=== PATIENT | female | born 1955 | race Two or more races ===

== ENCOUNTER → 2024-04-12 | Outpatient (CLI) | payer OTHER, MEDICAID, SELFPAY ==
[2024-04-12 10:00] LABS: Glucose Estimated Average 180 mg/dL (80-131); Hemoglobin A1C 7.9 % Hgb (4.8-6.0)
[2024-04-12 10:15] LABS: Alanine Aminotransferase 19 U/L (10-49); Albumin, Serum 4.6 gm/dL (3.4-4.8); Albumin/Globulin Ratio 1.9 (1.2-2.2); Alkaline Phosphatase 87 U/L (46-116); Anion Gap 6 (7-16); Aspartate Amino Transferase 19 U/L (0-34); BUN/Creatinine Ratio 19 Ratio (12-20); Bilirubin,Total 0.8 mg/dL (0.3-1.2); Blood Urea Nitrogen 15 mg/dL (9-23); Calcium 9.6 mg/dL (8.3-10.6); Calcium (Corrected) 9.6 mg/dL (8.5-10.1); Carbon Dioxide 28.6 mMol/L (20.0-31.0); Cardiac Risk Estimate 2.6 RATIO (3.7-5.6); Chloride 107 mMol/L (98-107); Cholesterol 142 mg/dL (132-200); Creatinine (Component) 0.8 mg/dL (0.6-1.3); Globulin 2.4 gm/dL (2.3-3.5); Glucose 77 mg/dL (74-106); HDL Cholesterol 55 mg/dL (40-60); LDL Cholesterol,Calculated 63 mg/dL (0-130); Osmolality,Calculated 282 (275-295); Sodium 142 mMol/L (136-145); Triglycerides 120 mg/dL (30-150); eGFR > 60 See Note
== END | disposition home or self-care (01) ==
LOC: COPL 08:51
PROVIDERS: PCP Student in an Organized Health Care Education/Training Program; Referring Provider Student in an Organized Health Care Education/Training Program; Visit Provider Student in an Organized Health Care Education/Training Program
DX: I10 Essential (primary) hypertension (principal); E78.00 Pure hypercholesterolemia, unspecified; E11.65 Type 2 diabetes mellitus with hyperglycemia
CPT/HCPCS: 36415; 80053; 80061; 83036

== ENCOUNTER → 2024-07-26 | Outpatient (CLI) | payer MEDICARE, MEDICAID, SELFPAY ==
[2024-07-26 10:19] LABS: Misc Send Out* See Sep Rpt
[2024-07-26 11:30] LABS: Basophils % (Auto) 0 % (0-2.5); Eosinophils # (Auto) 0.1 Thou/mm3 (0.0-0.5); Eosinophils % (Auto) 2 % (0-10); Hematocrit 44.6 % (36.0-46.0); Hemoglobin 14.7 g/dL (12.0-16.0); Immature Granulocytes % (Auto) 0 % (0-0); Immature Granulocytes Auto 0.01 Thou/mm3 (0.00-0.00); Lymphocytes # (Auto) 2.8 Thou/mm3 (1.0-4.8); Lymphocytes % (Auto) 39 % (10-50); Mean Corpuscular Hemoglobin 30.1 pg (25.0-35.0); Mean Corpuscular Volume 91 fL (80-100); Monocytes # (Auto) 0.4 Thou/mm3 (0.0-0.8); Monocytes % (Auto) 6 % (0-12); Neutrophils # (Auto) 3.8 Thou/mm3 (1.8-7.7); Neutrophils % (Auto) 54 % (37-80); Nucleated Red Blood Cell % 0 /100 WBC (0); Platelet Count 230 Thou/mm3 (140-440); Red Blood Count 4.89 Miln/mm3 (4.00-5.20); White Blood Count 7.2 Thou/mm3 (3.6-11.0)
[2024-07-26 11:35] LABS: Glucose Estimated Average 166 mg/dL (80-131); Hemoglobin A1C 7.4 % Hgb (4.8-6.0)
[2024-07-26 11:45] LABS: Folate 12.05 ng/mL (>5.38); Vitamin B12 555 pg/mL (211-911)
[2024-07-26 11:49] LABS: Alanine Aminotransferase 20 U/L (10-49); Albumin, Serum 4.5 gm/dL (3.4-4.8); Albumin/Globulin Ratio 1.6 (1.2-2.2); Alkaline Phosphatase 82 U/L (46-116); Anion Gap 11 (7-16); Aspartate Amino Transferase 18 U/L (0-34); BUN/Creatinine Ratio 24 Ratio (12-20); Bilirubin,Total 0.8 mg/dL (0.3-1.2); Blood Urea Nitrogen 19 mg/dL (9-23); Calcium 9.1 mg/dL (8.3-10.6); Calcium (Corrected) 9.1 mg/dL (8.5-10.1); Carbon Dioxide 26.5 mMol/L (20.0-31.0); Cardiac Risk Estimate 2.6 RATIO (3.7-5.6); Chloride 106 mMol/L (98-107); Cholesterol 137 mg/dL (132-200); Creatinine (Component) 0.8 mg/dL (0.6-1.3); Globulin 2.8 gm/dL (2.3-3.5); Glucose 126 mg/dL (74-106); HDL Cholesterol 52 mg/dL (40-60); LDL Cholesterol,Calculated 57 mg/dL (0-130); Magnesium 1.9 mg/dL (1.6-2.6); Osmolality,Calculated 289 (275-295); Potassium 4.2 mMol/L (3.4-5.1); Sodium 143 mMol/L (136-145); Thyroid Stimulating Hormone 2.09 uIU/mL (0.55-4.78); Total Protein 7.3 gm/dL (5.7-8.2); Triglycerides 138 mg/dL (30-150); eGFR > 60 See Note
[2024-07-26 11:50] LABS: Creatinine MALB Rnd Ur 80 mg/dL (30-125); Microalbumin Creat Ratio 11 mg/gCrea (<30); Microalbumin, Random Urine 9 mg/L (0-300)
== END | disposition home or self-care (01) ==
LOC: COPL 09:56
PROVIDERS: PCP Student in an Organized Health Care Education/Training Program; Referring Provider Student in an Organized Health Care Education/Training Program; Visit Provider Student in an Organized Health Care Education/Training Program
DX: G62.9 Polyneuropathy, unspecified (principal); I10 Essential (primary) hypertension; E78.00 Pure hypercholesterolemia, unspecified; E11.9 Type 2 diabetes mellitus without complications
CPT/HCPCS: 36415; 80053; 80061; 82043; 82570; 82607; 82746; 83036; 83735; 84443; 85025

== ENCOUNTER → 2024-08-22 | Outpatient (CLI) | payer MEDICARE, MEDICAID, SELFPAY | END | disposition home or self-care (01) | LOC: SLDO 15:25 | PROVIDERS: PCP Student in an Organized Health Care Education/Training Program; Referring Provider Student in an Organized Health Care Education/Training Program; Visit Provider Student in an Organized Health Care Education/Training Program | DX: N39.0 Urinary tract infection, site not specified (principal) | CPT/HCPCS: 87086 ==

== ENCOUNTER → 2024-09-03 | Outpatient (CLI) | payer MEDICARE, MEDICAID, SELFPAY ==
--- NOTE | 2024-09-03 16:00 | XR_ITS ---
Examination: Retroperitoneal ultrasound, complete Technique: Multiple high resolution grayscale images of the retroperitoneum obtained, including kidneys and bladder. Exam date and time:September 03, 2024 1601 hours INDICATIONS: Bilateral flank pain beginning one month ago FINDINGS: Right kidney 9.7 cm renal cortex 1.1 cm Mild hydronephrosis Left kidney 9.6 cm renal cortex 1.4 cm Mild hydronephrosis Mild bilateral renal parenchymal scar formation No bladder mass or bladder calculi Bladder prevoid volume 86 cc unable to void IMPRESSION: Mild bilateral hydronephrosis, clinical correlation is advised, consider CT scan abdomen and pelvis without contrast follow-up to assess etiology of the hydronephrosis
== END | disposition home or self-care (01) ==
LOC: CDIM 15:35
PROVIDERS: PCP Student in an Organized Health Care Education/Training Program; Referring Provider Student in an Organized Health Care Education/Training Program; Visit Provider Student in an Organized Health Care Education/Training Program
DX: N13.30 Unspecified hydronephrosis (principal)
CPT/HCPCS: 76770

== ENCOUNTER → 2024-11-08 | Outpatient (CLI) | payer MEDICARE, MEDICAID, SELFPAY ==
--- NOTE | 2024-11-08 08:00 | XR_ITS ---
Examination: CT abdomen and pelvis without contrast. Coronal 3-D reconstructions. Sagittal 2-D reconstructions. Date and time of exam:November 08, 2024 0800 hours INDICATIONS: Left flank and left upper abdominal pain beginning one week ago, renal sonogram August 26, 2024 mild bilateral hydronephrosis CTDI: vol (mGy): 8.68 DLP: (mGycm): 468 Technique: Axial images of the abdomen have been obtained, 3 mm slice thickness Intravenous contrast material has not been administered. Low dose protocols were performed. One or more of the following dose reduction techniques were used; automated exposure control, adjustment of the mA and/or KV according to patient size, use of iterative reconstruction technique. Findings: No focal liver or splenic lesions Cholelithiasis No pancreatic mass Small parapelvic cysts on the left No renal or ureteral calculi No hydronephrosis No bowel obstruction No pericecal inflammatory change Atrophic uterus No bladder mass or bladder calculi IMPRESSION: No renal or ureteral calculi, no hydronephrosis No bladder mass or bladder calculi
== END | disposition home or self-care (01) ==
LOC: CCTX 07:42
PROVIDERS: Referring Provider Student in an Organized Health Care Education/Training Program; Visit Provider Student in an Organized Health Care Education/Training Program
DX: N13.39 Other hydronephrosis (principal)
CPT/HCPCS: 74176

== ENCOUNTER → 2025-01-10 | Outpatient (CLI) | payer MEDICARE, MEDICAID, SELFPAY ==
[2025-01-10 10:54] LABS: Basophils # (Auto) 0.0 Thou/mm3 (0.0-0.2); Basophils % (Auto) 1 % (0-2.5); Eosinophils # (Auto) 0.1 Thou/mm3 (0.0-0.5); Eosinophils % (Auto) 2 % (0-10); Hematocrit 43.9 % (36.0-46.0); Hemoglobin 14.2 g/dL (12.0-16.0); Immature Granulocytes Auto 0.01 Thou/mm3 (0.00-0.00); Lymphocytes # (Auto) 3.2 Thou/mm3 (1.0-4.8); Lymphocytes % (Auto) 39 % (10-50); Mean Corpuscular HGB Conc 32.3 g/dl (31.0-37.0); Mean Corpuscular Hemoglobin 29.5 pg (25.0-35.0); Mean Corpuscular Volume 91 fL (80-100); Monocytes # (Auto) 0.5 Thou/mm3 (0.0-0.8); Monocytes % (Auto) 6 % (0-12); Neutrophils # (Auto) 4.3 Thou/mm3 (1.8-7.7); Neutrophils % (Auto) 52 % (37-80); Nucleated Red Blood Cell # 0.00 Thou/mm3 (0.00-0.00); Nucleated Red Blood Cell % 0 /100 WBC (0); Platelet Count 213 Thou/mm3 (140-440); RDW Standard Deviation 46.0 fL (36.4-46.3); Red Blood Count 4.82 Miln/mm3 (4.00-5.20); White Blood Count 8.2 Thou/mm3 (3.6-11.0)
[2025-01-10 11:01] LABS: Glucose Estimated Average 212 mg/dL (80-131); Hemoglobin A1C 9.0 % Hgb (4.8-6.0)
[2025-01-10 11:13] LABS: Alanine Aminotransferase 19 U/L (10-49); Albumin, Serum 4.4 gm/dL (3.4-4.8); Albumin/Globulin Ratio 2.0 (1.2-2.2); Alkaline Phosphatase 89 U/L (46-116); Anion Gap 11 (7-16); Aspartate Amino Transferase 21 U/L (0-34); BUN/Creatinine Ratio 25 Ratio (12-20); Bilirubin,Total 0.9 mg/dL (0.3-1.2); Blood Urea Nitrogen 20 mg/dL (9-23); Calcium 9.8 mg/dL (8.3-10.6); Calcium (Corrected) 9.8 mg/dL (8.5-10.1); Carbon Dioxide 26.7 mMol/L (20.0-31.0); Cardiac Risk Estimate 2.5 RATIO (3.7-5.6); Chloride 108 mMol/L (98-107); Cholesterol 143 mg/dL (132-200); Creatinine (Component) 0.8 mg/dL (0.6-1.3); Globulin 2.2 gm/dL (2.3-3.5); Glucose 83 mg/dL (74-106); HDL Cholesterol 57 mg/dL (40-60); LDL Cholesterol,Calculated 61 mg/dL (0-130); Osmolality,Calculated 292 (275-295); Potassium 4.6 mMol/L (3.4-5.1); Sodium 146 mMol/L (136-145); Thyroid Stimulating Hormone 2.45 uIU/mL (0.55-4.78); Total Protein 6.6 gm/dL (5.7-8.2); Triglycerides 127 mg/dL (30-150); eGFR > 60 See Note
== END | disposition home or self-care (01) ==
LOC: COPL 08:53
PROVIDERS: PCP Student in an Organized Health Care Education/Training Program; Referring Provider Student in an Organized Health Care Education/Training Program; Visit Provider Student in an Organized Health Care Education/Training Program
DX: I10 Essential (primary) hypertension (principal); G62.9 Polyneuropathy, unspecified; E11.9 Type 2 diabetes mellitus without complications; E78.00 Pure hypercholesterolemia, unspecified
CPT/HCPCS: 36415; 80053; 80061; 83036; 84443; 85025

== ENCOUNTER → 2025-01-23 | Outpatient (CLI) | payer MEDICARE, MEDICAID, SELFPAY ==
--- NOTE | 2025-01-23 11:45 | XR_ITS ---
Examination: Screening digital mammography, bilateral Computer aided detection 3-D breast Tomosynthesis, bilateral Date and time of exam: January 23, 2025 1113 hours, compared to mammograms dating to September 11, 2020 Indication: Screening Technique: Nonmagnified MLO, CC views of the breasts to been obtained, reconstructed from 3-D Tomosynthesis images. R2 computer aided detection program utilized for evaluation of suspicious masses and/or abnormal calcifications. 3-D Tomosynthesis images obtained. Findings: Scattered areas of fibroglandular density. Benign calcifications. No interval suspicious masses Impression: BI-RADS category II: Benign Findings. Recommend 1 year follow-up mammogram.
== END | disposition home or self-care (01) ==
LOC: CDIM 11:22
PROVIDERS: Referring Provider Student in an Organized Health Care Education/Training Program; Visit Provider Student in an Organized Health Care Education/Training Program
DX: Z12.31 Encounter for screening mammogram for malignant neoplasm of breast (principal); R92.323 Mammographic fibroglandular density, bilateral breasts; R92.1 Mammographic calcification found on diagnostic imaging of breast
CPT/HCPCS: 77063; 77067

== ENCOUNTER 2025-02-24 15:21 | Emergency (ER) | payer MEDICARE, MEDICAID, SELFPAY ==
[2025-02-24 16:21] VITALS: BP 152/89; PULSE 74; RESP 18; TEMP 37.2; O2SAT 97
--- NOTE | 2025-02-24 16:23 | XR_ITS ---
Examination: CT abdomen with intravenous contrast CT pelvis with intravenous contrast 2-D coronal reconstructions 2-D sagittal reconstructions Date and time of exam: February 24, 2025, 5:41 p.m, comparison November 08, 2024 INDICATIONS: Right-sided flank and abdominal pain with nausea vomiting today. CTDI: vol (mGy) 9.83 DLP: (mGycm) 546 Technique: Multiple axial sections of the abdomen and pelvis have been obtained. 64 slice high-resolution scanner used. 3 mm axial sections have been obtained, post intravenous injection of 60 cc Isovue 370 2-D sagittal, coronal reconstructions obtained. Low dose protocols were performed. One or more of the following dose reduction techniques were used; automated exposure control, adjustment of the mA and/or KV according to patient size, use of iterative reconstruction technique. Findings: No focal liver or splenic lesions Gallstones No pancreatic mass Minimal left mild right hydronephrosis, wall thickening of the right pelvicalyceal system and right ureter No bowel obstruction, no pericecal inflammatory change There appears to be inflammatory change in the right adnexal region, axial image 200 with trace free fluid in the pelvis Atrophic uterus Urinary bladder wall thickening up to 6 mm Severe osteopenia with fusion L4-S1 Right internal iliac region axial image 184 appears prominent early adenopathy cannot be excluded IMPRESSION: Minimal left mild right hydronephrosis, suspicious for right urinary tract infection Inflammatory change in the right adnexal region, recommend pelvic sonography follow-up Suspicious for right internal iliac lymphadenopathy, consider PET CT scan follow-up
--- NOTE | 2025-02-24 16:27 | PD.EDABDPN ---
ED Abdominal Pain RME/HPI General Chief Complaint: Abdominal Pain Stated complaint: RIGHT SIDED ABD PAIN SINCE 1300 Time seen by provider: 02/24/25 15:42 Arrival date/time: 02/24/25 15:21 RME / HPI RME / HPI narrative: DR. LAWRENCE MAIN ED EVALUATION: 69-year-old female with a history of prior kidney infections presents to the Emergency Department accompanied by her for evaluation of right flank pain that began around 1:30 PM today. The pain is constant and associated with nausea and vomiting. She reports mild dysuria but denies hematuria. No fever or chills. No diarrhea or constipation. No recent trauma, travel, or sick contacts reported. Related Data Home Medications ?Medication ?Instructions ?Recorded ?Confirmed amlodipine 2.5 mg tablet 1 tab PO BID 11/08/21 06/21/22 aspirin 81 mg chewable tablet 81 mg PO QDAY 11/08/21 06/21/22 empagliflozin 25 mg tablet 25 mg PO QDAY 11/08/21 06/21/22 (Jardiance) ramipril 10 mg capsule 10 mg PO QDAY 11/08/21 06/21/22 semaglutide 14 mg tablet (Rybelsus) 14 mg PO QDAY 11/08/21 06/21/22 B-complex with vitamin C 1 cap PO QDAY 03/03/22 06/21/22 garlic 1,000 mg capsule 1,000 mg PO QDAY 03/03/22 06/21/22 multivitamin (Multiple Vitamins 1 tab PO QAM 03/03/22 06/21/22 tablet) pantoprazole 40 mg tablet,delayed 40 mg PO DAILY 03/03/22 06/21/22 release ibuprofen 200 mg tablet 200 mg PO Q6H PRN Pain 03/17/22 06/21/22 Held on 06/21/22. Instructions: Resume on 06/22/22. MAY RESUME AFTER 24 HOURS Previous Rx's ?Medication ?Instructions ?Recorded cefixime 400 mg capsule (Suprax) 400 mg PO QDAY 10 days #10 caps 02/24/25 Allergies Allergy/AdvReac Type Severity Reaction Status Date / Time No Known Allergies Allergy Verified 02/24/25 15:23 Review of Systems Review of Systems Systems Reviewed: All systems reviewed, normal except as documented Past Medical History Past Medical History NEUROLOGIC: Positive Neurological Disorders and Migraine CARDIAC: Positive Cardiac Disorders, Hypercholesterolemia, Edema (SWOLLEN FEET) and Hypertension GASTROINTESTINAL: Positive Gastrointestinal Disorders and Hemorrhoids GENITOURINARY: Positive Genitourinary Disorders and Kidney Stones REPRODUCTIVE: Positive Previous Pregnancies (X4) MUSCULOSKELETAL: Positive Musculoskeletal Disorders and Arthritis ENT: Positive Cataracts (LEFT) ENDOCRINE: Positive Endocrine Disorders and Diabetes Mellitus Type 2 PSYCHO/SOCIAL: Positive Depression OTHER HISTORY: Positive Hospitalization (HOSP FOR 10/28 BG OUT OF CONTROL), Chicken Pox, Measles and Mumps Family History FAMILY HISTORY: Positive Family Cardiac Disorders (FATHER (CVA),MOTHER ([place]),BROTHER,SISTER (HTN)) and Family Cancer (BROTHER (LUNG CA), BROTHER KIDNEY CANCER) Surgical History SURGICAL: Positive Tubal Ligation Social History SMOKING STATUS: Never smoker SUBSTANCE USE: does not use ALCOHOL: Never ED Exam Narrative Physical exam: GENERAL APPEARANCE: alert and oriented x 4, well-developed, well-nourished, no acute distress VITALS: All vitals were reviewed and the pulse ox is 97% on room air, which is normal according to my interpretation. HEENT: Normocephalic, atraumatic; pupils equal, round, reactive to light; EOMI; mucous membranes pink, moist; oropharynx clear NECK: Supple LUNGS: CTABL; no wheezes, no rales, no rhonchi HEART: Regular rate, regular rhythm; normal S1, S2; no murmurs ABDOMEN: non distended; normal BS; soft, no tenderness, no guarding, no rebound; no masses, no organomegaly, no hernia BACK: Right CVA tenderness EXTREMITIES: atraumatic; no edema NEUROLOGIC: awake; alert and oriented x4; cranial nerves II-XII grossly intact; no focal sensory or motor deficits PSYCHIATRIC: appropriate mood and affect SKIN: warm, dry, normal color; no rashes Course Quality Measures none Orders Category Date Time Status CT Screening NOW Care 02/24/25 16:[address] abdomen pelvis w con Stat Exams 02/24/25 16:23 Completed B-Type Natriuretic Peptide Stat Lab 02/24/25 16:49 Completed CBC Stat Lab 02/24/25 16:49 Completed Comprehensive Metabolic Panel Stat Lab 02/24/25 16:49 Completed Lipase Stat Lab 02/24/25 16:49 Completed Magnesium Stat Lab 02/24/25 16:49 Completed Troponin I Stat Lab 02/24/25 16:49 Completed UA, C/S IF [Urinalysis, C/S if Indicated] Stat Lab 02/24/25 16:50 Completed Urine Culture Stat Lab 02/24/25 16:50 Completed HYDROcodone*/APAP 5/325 [[place] 5/325] Med 02/24/25 16:22 Discontinued 1 tab PO X1 ONE Ketorolac Inj [Toradol Inj] Med 02/24/25 16:21 Discontinued 30 mg IM X1 ONE Ondansetron Odt [Zofran Odt] Med 02/24/25 16:21 Discontinued 4 mg PO X1 ONE cefTRIAXone/D5w 1gm IV premix [Rocephin/D5w 1gm IV Med 02/24/25 17:38 Discontinued premix] 1 gm in 50 ml IV X1 Vital Signs Vital signs: Vital Signs Temperature 99.0 F 02/24/25 16:21 Pulse Rate 74 02/24/25 16:21 Respiratory Rate 18 02/24/25 16:21 Blood Pressure 152/89 H 02/24/25 16:21 Pulse Oximetry (%) 97 02/24/25 16:21 Oxygen Delivery Method Room Air 02/24/25 16:21 Abdominal Pain MDM MDM Narrative MDM Narrative:: ILashell am scribing for and in the presence of Dr. Lawrence. Patient data External records reviewed:: [facility] previous records Clinical information provided by:: patient Social determinants that could affect healthcare access:: none Patient has the following chronic illnesses:: prior kidney infections How is presenting disease/condition affected by chronic disease/condition?: exacerbated by Evaluation data The following diagnostics were reviewed and interpreted by me:: lab results and radiology exam(s) Lab and/or radiology exams considered but not ordered:: none Interpretation Summary: Pending. Medications / Prescriptions Medications or Prescriptions considered but not ordered:: none Medication administrations:: Medication Administration History Discontinued Medications Hydrocodone Bitart/Acetaminophen (Hydrocodone/Apap 5/325 Tablet) 1 tab PO X1 ONE Stop: 02/24/25 16:23 Last Admin: 02/24/25 16:30 Dose: 1 tab Documented By: [facility] Ceftriaxone Sodium/Dextrose (Rocephin/D5w 1gm Iv Premix) 1 gm in 50 mls @ 100 mls/hr IV X1 ONE Stop: 02/24/25 18:07 Last Infusion: 02/24/25 20:08 Dose: Infused Documented By: Admin: 02/24/25 19:22 Dose: 100 mls/hr Documented By: BD Ketorolac Tromethamine (Ketorolac Inj 30 Mg/Ml Vial) 30 mg IM X1 ONE Stop: 02/24/25 16:22 Last Admin: 02/24/25 16:30 Dose: 30 mg Documented By: ANIA Ondansetron HCl (Ondansetron Odt 4 Mg Tabrap) 4 mg PO X1 ONE; Protocol Stop: 02/24/25 16:22 Last Admin: 02/24/25 16:29 Dose: 4 mg Documented By: ANIA see above Consultations Consultation(s) initiated? (list below): No Diagnosis Differential diagnosis abdominal pain: other (Pyelonephritis, nephrolithiasis, and UTI.) Most likely diagnosis given after review of the tests above:: No official diagnoses at this time, still pending diagnostic tests. Patient signout to the night time babysitter provider. Admission Indicated Admission indicated?: not indicated Explain why admission is indicated or not indicated:: No final disposition plan at this time, still pending diagnostic tests. Patient signout to the night time babysitter provider. Admission Request Was there a request for admission?: No Disposition Plan Disposition Plan: other (specify) (Patient signout to the night time babysitter provider.) Discharge Plan Prescriptions/Referrals Prescriptions/Med Rec: New cefixime [Suprax] 400 mg capsule 400 mg PO QDAY 10 Days Qty: 10 0RF No Action amlodipine 2.5 mg tablet 1 tab PO BID aspirin 81 mg Tablet,Chewable 81 mg PO QDAY ramipril 10 mg Capsule 10 mg PO QDAY Jardiance 25 mg Tablet 25 mg PO QDAY Rybelsus 14 mg Tablet 14 mg PO QDAY ibuprofen 200 mg Tablet 200 mg PO Q6H PRN (Reason: Pain) multivitamin [Multiple Vitamins] Tablet 1 tab PO QAM garlic 1,000 mg Capsule 1,000 mg PO QDAY pantoprazole 40 mg tablet,delayed release (DR/EC) 40 mg PO DAILY Patient Comments: TAKE 1 TABLET BY MOUTH EVERY DAY B-complex with vitamin C Capsule 1 cap PO QDAY Referrals: Tanmay Paulino PA-C [Primary Care Provider] - In 1 week Problem List Clinical Impression: Flank pain Patient/Caregiver Discharge Instructions Print Language: Vietnamese
[2025-02-24] MEDS: ONDANSETRON ODT 4 MG TABRAP PO (16:29)
[2025-02-24] MEDS: HYDROcodone/APAP 5/325 TABLET 1 TAB PO (16:30)
[2025-02-24] MEDS: KETOROLAC INJ 30 MG/ML VIAL IM (16:30)
[2025-02-24 17:05] LABS: Collection Type, Urine Clean Catch
[2025-02-24 17:10] LABS: Basophils # (Auto) 0.0 Thou/mm3 (0.0-0.2); Basophils % (Auto) 0 % (0-2.5); Eosinophils # (Auto) 0.0 Thou/mm3 (0.0-0.5); Eosinophils % (Auto) 0 % (0-10); Hematocrit 45.1 % (36.0-46.0); Hemoglobin 14.8 g/dL (12.0-16.0); Immature Granulocytes Auto 0.03 Thou/mm3 (0.00-0.00); Lymphocytes # (Auto) 1.7 Thou/mm3 (1.0-4.8); Lymphocytes % (Auto) 13 % (10-50); Mean Corpuscular HGB Conc 32.8 g/dl (31.0-37.0); Mean Corpuscular Hemoglobin 29.4 pg (25.0-35.0); Mean Corpuscular Volume 90 fL (80-100); Monocytes # (Auto) 0.8 Thou/mm3 (0.0-0.8); Monocytes % (Auto) 6 % (0-12); Neutrophils # (Auto) 10.8 Thou/mm3 (1.8-7.7); Neutrophils % (Auto) 81 % (37-80); Nucleated Red Blood Cell # 0.00 Thou/mm3 (0.00-0.00); Nucleated Red Blood Cell % 0 /100 WBC (0); Platelet Count 215 Thou/mm3 (140-440); RDW Standard Deviation 44.1 fL (36.4-46.3); Red Blood Count 5.03 Miln/mm3 (4.00-5.20); White Blood Count 13.4 Thou/mm3 (3.6-11.0)
[2025-02-24 17:27] LABS: Bacteria,Urine 4+; Bilirubin,Urine Negative (Negative); Blood,Urine Trace (Negative); Clarity,Urine Turbid (Clear/Hazy); Color,Urine Yellow (Lt Yel-Yel); Culture Indicated,Urine Yes; Glucose, Urine 4+ (Negative); Ketones,Urine Negative (Negative); Leukocyte Esterase,Urine Positive (Negative); Nitrite,Urine Negative (Negative); PH,Urine 6.5 (5.0-7.0); Protein,Urine 2+ (Neg - Trace); RBC,Urine 8 /hpf (0-3); Specific Gravity,Urine 1.027 (1.001-1.035); Squamous Epithelial Cell,Urine < 1 /hpf (0-5); Urobilinogen,Urine Negative mg/dL (0.0-1.0); WBC,Urine 28 /hpf (0-5)
[2025-02-24 17:28] LABS: B-Type Natriuretic Peptide 21 pg/mL (0-100)
[2025-02-24 17:31] LABS: Alanine Aminotransferase 20 U/L (10-49); Albumin, Serum 4.6 gm/dL (3.4-4.8); Albumin/Globulin Ratio 1.6 (1.2-2.2); Alkaline Phosphatase 92 U/L (46-116); Anion Gap 14 (7-16); Aspartate Amino Transferase 24 U/L (0-34); BUN/Creatinine Ratio 10 Ratio (12-20); Bilirubin,Total 0.7 mg/dL (0.3-1.2); Blood Urea Nitrogen 10 mg/dL (9-23); Calcium 9.7 mg/dL (8.3-10.6); Calcium (Corrected) 9.7 mg/dL (8.5-10.1); Carbon Dioxide 24.0 mMol/L (20.0-31.0); Chloride 105 mMol/L (98-107); Creatinine (Component) 1.0 mg/dL (0.6-1.3); Globulin 2.9 gm/dL (2.3-3.5); Glucose 174 mg/dL (74-106); Lipase 26 U/L (12-53); Magnesium 2.2 mg/dL (1.6-2.6); Osmolality,Calculated 287 (275-295); Potassium 4.0 mMol/L (3.4-5.1); Sodium 143 mMol/L (136-145); Total Protein 7.5 gm/dL (5.7-8.2); Troponin I < 0.002 ng/mL (0.0-0.045); eGFR > 60 See Note
--- NOTE | 2025-02-24 18:55 | EDNOTE_ITS ---
Emergency Room Addendum <Misty Ashley - Last Filed: 02/24/25 21:11> Addendum Narrative: 1800: Care assumed from Dr. Lawrence, the previous shift emergency physician. Past medical, surgical, social and family history reviewed. Vitals and home medications reviewed. Results and treatment plan discussed. I will assume the care of the patient at this time and will follow the patient. Please refer to the emergency department record for history and examination from initial visit. RADIOLOGY RESULTS: [facility] Report Signed Patient: EMI SHARP. Record#: [id number] Birthdate: 1955 Age/Sex: 69 / F Location: [facility] Attending Dr: Ordering Physician: Kallie Lawrence MD Date of Service: 02/24/25 Procedure(s): CT abdomen pelvis w con Accession Number(s): [id number] cc: Tanmay Paulino PA-C; Dez Gallo MD; Kallie Lawrence MD~ Examination: CT abdomen with intravenous contrast CT pelvis with intravenous contrast 2-D coronal reconstructions 2-D sagittal reconstructions Date and time of exam: February 24, 2025, 5:41 p.m, comparison November 08, 2024 INDICATIONS: Right-sided flank and abdominal pain with nausea vomiting today. CTDI: vol (mGy) 9.83 DLP: (mGycm) 546 Technique: Multiple axial sections of the abdomen and pelvis have been obtained. 64 slice high-resolution scanner used. 3 mm axial sections have been obtained, post intravenous injection of 60 cc Isovue 370 2-D sagittal, coronal reconstructions obtained. Low dose protocols were performed. One or more of the following dose reduction techniques were used; automated exposure control, adjustment of the mA and/or KV according to patient size, use of iterative reconstruction technique. Findings: No focal liver or splenic lesions Gallstones No pancreatic mass Minimal left mild right hydronephrosis, wall thickening of the right pelvicalyceal system and right ureter No bowel obstruction, no pericecal inflammatory change There appears to be inflammatory change in the right adnexal region, axial image 200 with trace free fluid in the pelvis Atrophic uterus Urinary bladder wall thickening up to 6 mm Severe osteopenia with fusion L4-S1 Right internal iliac region axial image 184 appears prominent early adenopathy cannot be excluded IMPRESSION: Minimal left mild right hydronephrosis, suspicious for right urinary tract infection Inflammatory change in the right adnexal region, recommend pelvic sonography follow-up Suspicious for right internal iliac lymphadenopathy, consider PET CT scan follow-up Dictated By: Dez Gallo MD Signed By: <Electronically signed by Dez Gallo MD in [place]> 02/24/25 181 <Emi Ortega MD - Last Filed: 03/10/25 19:03> Addendum Narrative: 1800: Care assumed from Dr. Lawrence, the previous shift emergency physician. Past medical, surgical, social and family history reviewed. Vitals and home medications reviewed. Results and treatment plan discussed. I will assume the care of the patient at this time and will follow the patient. Please refer to the emergency department record for history and examination from initial visit. Patient is a 69-year-old female is in the emergency department with concerns for flank pain. Prior provider evaluated patient. Ordered labs and CT. Labs with evidence of leukocytosis 13.4, left shift of 81%. Hemoglobin 14.8. No acute electrolyte abnormality, no significant metabolic disturbance. No transaminitis, troponin not elevated. Lipase not elevated. Urinalysis with protein, glucose, trace blood positive leuk esterase, 8 red blood cells, 28 white blood cells concern for urinary tract infection. Patient received antibiotics earlier today. CT abdomen pelvis with contrast with evidence of gallstones, minimal left mild right hydronephrosis wall thickening on the right Helvey calyceal system and right ureter. Patient does have urinary bladder thickening. No evidence of stone. Patient also has lymphadenopathy, severe osteopenia, and and trace pelvic free fluid. Patient without any pelvic pain. On reevaluation patient hemodynamically stable not in distress will discharge to home with close return precautions follow-up with primary care doctor. RADIOLOGY RESULTS: [facility] Report Signed Patient: EMI SHARP [facility]. Record#: [id number] Birthdate: 1955 Age/Sex: 69 / F Location: [facility] Attending Dr: Ordering Physician: Kallie Lawrence MD Date of Service: 02/24/25 Procedure(s): CT abdomen pelvis w con Accession Number(s): [id number] cc: Tanmay Paulino PA-C; Dez Gallo MD; Kallie Lawrence MD~ Examination: CT abdomen with intravenous contrast CT pelvis with intravenous contrast 2-D coronal reconstructions 2-D sagittal reconstructions Date and time of exam: February 24, 2025, 5:41 p.m, comparison November 08, 2024 INDICATIONS: Right-sided flank and abdominal pain with nausea vomiting today. CTDI: vol (mGy) 9.83 DLP: (mGycm) 546 Technique: Multiple axial sections of the abdomen and pelvis have been obtained. 64 slice high-resolution scanner used. 3 mm axial sections have been obtained, post intravenous injection of 60 cc Isovue 370 2-D sagittal, coronal reconstructions obtained. Low dose protocols were performed. One or more of the following dose reduction techniques were used; automated exposure control, adjustment of the mA and/or KV according to patient size, use of iterative reconstruction technique. Findings: No focal liver or splenic lesions Gallstones No pancreatic mass Minimal left mild right hydronephrosis, wall thickening of the right pelvicalyceal system and right ureter No bowel obstruction, no pericecal inflammatory change There appears to be inflammatory change in the right adnexal region, axial image 200 with trace free fluid in the pelvis Atrophic uterus Urinary bladder wall thickening up to 6 mm Severe osteopenia with fusion L4-S1 Right internal iliac region axial image 184 appears prominent early adenopathy cannot be excluded IMPRESSION: Minimal left mild right hydronephrosis, suspicious for right urinary tract infection Inflammatory change in the right adnexal region, recommend pelvic sonography follow-up Suspicious for right internal iliac lymphadenopathy, consider PET CT scan follow-up Dictated By: Dez Gallo MD Signed By: <Electronically signed by Dez Gallo MD in OV> 02/24/25 0156
[2025-02-24] MEDS: cefTRIAXone/D5w 1gm IV premix 1 GM/50 ML BAG IV (19:22)
[2025-02-24 21:24] VITALS: BP 124/82; PULSE 78
== END 2025-02-24 21:25 | disposition home or self-care (01) ==
PROVIDERS: Emergency Medicine; Emergency Provider Emergency Medicine; PCP Student in an Organized Health Care Education/Training Program
DX: N13.30 Unspecified hydronephrosis (principal)
CPT/HCPCS: 36415; 74177; 80053; 81001; 83690; 83735; 83880; 84484; 85025; 87077; 87086; 87186; 96365; 96372; 99283; A4649; J0696; J1885; Q0162; Q9967; A9270

== ENCOUNTER → 2025-04-11 | Outpatient (CLI) | payer MEDICARE, MEDICAID, SELFPAY ==
[2025-04-11 10:20] LABS: Glucose Estimated Average 171 mg/dL (80-131); Hemoglobin A1C 7.6 % Hgb (4.8-6.0)
== END | disposition home or self-care (01) ==
LOC: COPL 08:38
PROVIDERS: PCP Student in an Organized Health Care Education/Training Program; Referring Provider Student in an Organized Health Care Education/Training Program; Visit Provider Student in an Organized Health Care Education/Training Program
DX: E11.9 Type 2 diabetes mellitus without complications (principal)
CPT/HCPCS: 36415; 83036